=== PATIENT | male | born 1945 | race Caucasian/White ===

== ENCOUNTER 2022-10-31 15:58 | Emergency (ER) | payer MEDICARE, BC ==
[2022-10-31] MEDS ORDERED: Proparacaine 0.5% Ophth Soln 15 ML Bottle EYERT ONE (16:18)
[2022-10-31] MEDS ORDERED: Fluorescein 1 MG Ophth Strip EYERT ONE (16:19)
== END 2022-10-31 17:02 | disposition home or self-care (01) ==
LOC: JD.ED 15:58
DX: S05.01XA Injury of conjunctiva and corneal abrasion without foreign body, right eye, initial encounter (principal); Z91.048 Other nonmedicinal substance allergy status; W22.09XA Striking against other stationary object, initial encounter
CPT/HCPCS: 99283; J3490